=== PATIENT | female | born 1970 | race Two or more races ===

== ENCOUNTER → 2016-12-15 | Outpatient (CLI) | payer MEDICARE, MEDICAID ==
[~2016-12-15] MED LIST: AMOX1TAB64 PO; ASPI-496 PO; ASPI325T17 PO; ATOR-2 PO; CLOP75TA52 PO; DIME240C PO; LISI-170 PO; MAGN300C PO; OMEG1CAP23 PO; THIA100T52 PO; UBID100C24 PO
[2016-12-15 11:56] LABS: ASPARTATE AMINO TRANSFERASE 37 U/L (15-37); BLOOD UREA NITROGEN 11 mg/dL (7-18)
== END | disposition home or self-care (01) ==
LOC: STAR 10:42
PROVIDERS: ATTEND Otolaryngology
DX: Z01.818 Encounter for other preprocedural examination (principal); K21.9 Gastro-esophageal reflux disease without esophagitis; R49.0 Dysphonia; R13.10 Dysphagia, unspecified; H65.20 Chronic serous otitis media, unspecified ear; Z88.8 Allergy status to other drugs, medicaments and biological substances
CPT/HCPCS: 36415; 80053; 93005

== ENCOUNTER 2016-12-21 06:52 | Day surgery (SDC) | payer MEDICARE, MEDICAID ==
[~2016-12-21] VITALS: Ht 170.2 cm; Wt 88.9 kg
[~2016-12-21 06:52] MED LIST changes: +EPINEPHRINE TOPICAL SOLN 1 MG/ML, 30ML ONE
[2016-12-21] MEDS ORDERED: LACTATED RINGERS 1,000 ML IV SCH (07:37)
[2016-12-21 07:42] VITALS: BP 127/84
[2016-12-21 07:53] LABS: DAU SCREEN DISCLAIMER
[2016-12-21] MEDS ORDERED: FENTANYL PF 100 MCG/2ML ONE ×3 (08:22→09:40)
[2016-12-21] MEDS ORDERED: MIDAZOLAM 1 MG/ML, 2ML ONE ×2 (08:22)
[2016-12-21] MEDS ORDERED: SUCCINYLCHOLINE 20 MG/ML, 10ML ONE (08:38)
[2016-12-21] MEDS ORDERED: PROPOFOL 10 MG/ML, 20ML ONE (08:38)
[2016-12-21] MEDS ORDERED: EPINEPHRINE TOPICAL SOLN 1 MG/ML, 30ML TP ONE (08:53)
[2016-12-21] MEDS ORDERED: OXYcodone 5 MG/5 ML ORAL.SOL UDC PO PRN (09:00)
[2016-12-21] MEDS ORDERED: ACETAMINOPHEN 325 MG TABLET PO PRN (09:00)
[2016-12-21] MEDS ORDERED: METOPROLOL 1 MG/ML, 5ML IV PRN (09:00)
[2016-12-21] MEDS ORDERED: ALBUTEROL SULFATE 2.5 MG/3 ML NPPB PRN (09:00)
[2016-12-21] MEDS ORDERED: hydrALAzine 20 MG/ML, 1ML IV PRN (09:00)
[2016-12-21] MEDS ORDERED: HYDROmorphone 1 MG/ML, 1ML IV PRN (09:00)
[2016-12-21] MEDS ORDERED: MEPERIDINE/PF 25MG/0.5ML IVPush PRN (09:00)
[2016-12-21] MEDS ORDERED: FENTANYL PF 100 MCG/2ML IV PRN (09:00)
[2016-12-21] MEDS ORDERED: PROMETHAZINE 25 MG/ML, 1ML IV PRN (09:00)
[2016-12-21] MEDS ORDERED: ACETAMINOPHEN 325 MG TABLET ONE (09:40)
[2016-12-21] MEDS ORDERED: ACETAMINOPHEN 650 MG/20.3 ML UDC ONE (09:40)
[2016-12-21] MEDS ORDERED: ALBUTEROL SULFATE 2.5 MG/3 ML ONE (10:03)
[2016-12-21 13:24] LABS: HCG UR OBC PASS
== END 2016-12-21 11:40 ==
LOC: OUT 06:52
PROVIDERS: ATTEND Otolaryngology
DX: K21.0 Gastro-esophageal reflux disease with esophagitis (principal); J02.9 Acute pharyngitis, unspecified; J31.2 Chronic pharyngitis; J03.90 Acute tonsillitis, unspecified; I10 Essential (primary) hypertension; E78.5 Hyperlipidemia, unspecified; G35 Multiple sclerosis; F17.200 Nicotine dependence, unspecified, uncomplicated; Z86.73 Personal history of transient ischemic attack (TIA), and cerebral infarction without residual deficits; Z79.82 Long term (current) use of aspirin
CPT/HCPCS: 43202; 43450; 80307; 81025; 88305; 94640; J0330; J2250; J2704; J3010; J7120; J7613; G0479

== ENCOUNTER → 2017-12-01 | Outpatient (CLI) | payer MEDICARE, MEDICAID ==
[~2017-12-01] MED LIST changes: -EPINEPHRINE TOPICAL SOLN 1 MG/ML, 30ML ONE
== END | disposition home or self-care (01) ==
LOC: CFH 08:42
PROVIDERS: ATTEND Otolaryngology
DX: K21.9 Gastro-esophageal reflux disease without esophagitis (principal); F17.200 Nicotine dependence, unspecified, uncomplicated
CPT/HCPCS: 74220

== ENCOUNTER 2019-02-11 13:20 | Emergency (ER) | payer MEDICARE, MEDICAID ==
[~2019-02-11] VITALS: Ht 170.2 cm; Wt 90.0 kg
--- NOTE | 2019-02-11 14:02 | NUR ---
PT BIBA FROM HOME AFTER MGLF DOWN 5 STAIRS (3 FEET). DENIES LOC, DENIES TAKIING BLOOD THINNERS AND DENIES HEAD OR NECK PAIN. PT STATES PAIN TO LEFT THIGH, RIGHT ANKLE AND RIGHT [place] AND HAS AN ABRASION TO LEFT FACE. IV ESTABLISHED EN ROUTE. 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 PT CONNECTED TO [facility]. VSS. DR. WILBURN TO BS FOR ASSESSMENT. AWAITING ORDERS.
[2019-02-11] MEDS ORDERED: KETOROLAC 30 MG/1 ML ONE (14:28)
[2019-02-11] MEDS ORDERED: KETOROLAC 30 MG/1 ML IVPush ONE (14:30)
[2019-02-11] MEDS ORDERED: KETOROLAC 30 MG/1 ML IM ONE (14:30)
[2019-02-11 14:31] VITALS: BP 108/67
--- NOTE | 2019-02-11 14:32 | NUR ---
PT RESTING IN ROOM. VSS. PT MEDICATED PER MAR. TOLERATED WELL. PT TO XR AT THIS TIME. AWAITING RESULTS.
--- NOTE | 2019-02-11 14:55 | NUR ---
ALL RESULTS BACK AT THIS TIME. CHART UP FOR RECHECK.
--- NOTE | 2019-02-11 15:11 | NUR ---
PT DRESSING AT THIS TIME. PLAN TO DC.
== END 2019-02-11 15:56 | disposition home or self-care (01) ==
LOC: ED 13:35
DX: S70.12XA Contusion of left thigh, initial encounter (principal); S09.93XA Unspecified injury of face, initial encounter; F17.200 Nicotine dependence, unspecified, uncomplicated; W01.0XXA Fall on same level from slipping, tripping and stumbling without subsequent striking against object, initial encounter; Y93.89 Activity, other specified; Y92.009 Unspecified place in unspecified non-institutional (private) residence as the place of occurrence of the external cause; Y99.8 Other external cause status
CPT/HCPCS: 73552; 96374; 99283; J1885

== ENCOUNTER → 2020-06-11 | Outpatient (CLI) | payer MEDICARE, MEDICAID ==
[~2020-06-11] MED LIST changes: +GADOTERATE 10 MMOL/20 ML SYR ONE
== END | disposition home or self-care (01) ==
LOC: CFH 13:33
PROVIDERS: ATTEND Registered Nurse
DX: G35 Multiple sclerosis (principal); H69.83 Other specified disorders of Eustachian tube, bilateral
CPT/HCPCS: 70553; A9575